=== PATIENT | female | born 1990 ===

== ENCOUNTER 2017-09-21 17:24 | Emergency (ER) | payer MEDICAID ==
[2017-09-21 17:32] VITALS: BP 118/78; PULSE 77; RESP 18; TEMP 97.9; O2SAT 99
--- NOTE | 2017-09-21 18:27 | ED PDOC ---
HPI: General Adult Time Seen by Provider: 09/21/17 18:25 Chief Complaint (Nursing): Abnormal Skin Integrity Chief Complaint (Provider): abscess History Per: Patient (27 y/o female here with swelling noted left inguinal region x 2 days. Unable to obtain obstetrician and gynaecologist appt and came to ED for evaluation. Admits shaving in region but states she has had similar abscess there in past that resolved by itself. No fevers or chills. Took 1 tab of flagyl (previously prescribed by her obstetrician and gynaecologist).) Past Medical History Reviewed: Historical Data, Nursing Documentation, Vital Signs Vital Signs: Last Vital Signs Temp 97.9 F 09/21/17 17:30 Pulse 77 09/21/17 17:30 Resp 18 09/21/17 17:30 BP 118/78 09/21/17 17:30 Pulse Ox 99 09/21/17 17:30 - Family History Family History: States: No Known Family Hx - Home Medications Home Medications: Ambulatory Orders Medication Instructions Recorded Sulfamethoxazole/Trimethoprim 1 tab PO BID #14 tab 09/21/17 [Bactrim DS 800 mg-160 mg] - Allergies Allergies/Adverse Reactions: Allergies Allergy/AdvReac Type Severity Reaction Status Date / Time No Known Allergies Allergy Verified 09/21/17 17:29 Review of Systems ROS Statement: Except As Marked, All Systems Reviewed And Found Negative Physical Exam - Reviewed Nursing Documentation Reviewed: Yes Vital Signs Reviewed: Yes - Physical Exam Appears: Positive for: Well, Non-toxic, No Acute Distress Head Exam: Positive for: ATRAUMATIC, NORMAL INSPECTION, NORMOCEPHALIC Skin: Positive for: Normal Color, Warm, DRY Eye Exam: Positive for: EOMI, Normal appearance, PERRL ENT: Positive for: Normal ENT Inspection Neck: Positive for: Normal, Painless ROM Cardiovascular/Chest: Positive for: Regular Rate, Rhythm Respiratory: Positive for: CNT, Normal Breath Sounds Gastrointestinal/Abdominal: Positive for: Normal Exam, Soft Back: Positive for: Normal Inspection Extremity: Positive for: Normal ROM, Tenderness (2.5 cm noted left suprapubic region by region of hair follicle with mild surrounding erythema.) Neurologic/Psych: Positive for: Alert, Oriented - ECG O2 Sat by Pulse Oximetry: 99 - Progress ED Course And Treament: patient advised warm soaks and return to ED or obstetrician and gynaecologist in 2 to 3 days Disposition - Clinical Impression Clinical Impression: Abscess - Patient ED Disposition Is Patient to be Admitted: No - Disposition Disposition: Routine/Home Disposition Time: 18:27 Condition: FAIR Prescriptions: Sulfamethoxazole/Trimethoprim [Bactrim DS 800 mg-160 mg] 1 tab PO BID #14 tab Instructions: Skin Abscess
== END 2017-09-21 18:55 | disposition home or self-care (01) ==
LOC: H.ER 17:24
DX: L02.91 Cutaneous abscess, unspecified (principal)